=== PATIENT | female | born 1985 | race Caucasian/White ===

== ENCOUNTER 2016-09-09 17:12 | Emergency (ER) | payer SELFPAY ==
--- NOTE | 2016-09-09 18:36 | ED.PDOC ---
History of Present Illness - General Chief Complaint: General Stated Complaint: Feels hot, but denies fever Time Seen by Provider: 09/09/16 18:17 Source: patient Exam Limitations: no limitations - History of Present Illness Initial Comments: Patient presents with a complaint of "hot flashes" this past week. She says she feels hot in her face with occasional mild headache. She felt "light-headed" yesterday after standing. + subjective fever. No nasal exudates nor congestion. No ST. Denies coughing or sneezing. No sick contacts. No other complaints. Timing/Duration: 1 week Severity: mild Improving Factors: nothing Worsening Factors: nothing Associated Symptoms: denies symptoms Allergies/Adverse Reactions: Allergies NO KNOWN ALLERGY Allergy (Verified 10/24/12 11:15) Review of Systems - Review of Systems Constitutional: States: no symptoms reported EENTM: States: no symptoms reported Respiratory: States: no symptoms reported Cardiology: States: no symptoms reported Gastrointestinal/Abdominal: States: no symptoms reported Genitourinary: States: no symptoms reported Musculoskeletal: States: no symptoms reported Skin: States: no symptoms reported Neurological: States: no symptoms reported Endocrine: States: no symptoms reported Hematologic/Lymphatic: States: no symptoms reported Past Medical History (General) - Patient Medical History Hx Seizures: No Hx Stroke: No Hx Asthma: No Hx of COPD: No Hx Cardiac Disorders: No Hx Congestive Heart Failure: No Hx Pacemaker: No Hx Hypertension: No Hx Diabetes: No Hx Cancer: No Hx Hepatitis C: No Hx MRSA: No - Vaccination History Hx Tetanus, Diphtheria Vaccination: No Hx Influenza Vaccination: No Hx Pneumococcal Vaccination: No Immunizations Up to Date: Yes - Social History Hx Tobacco Use: No Hx Chewing Tobacco Use: No Hx Alcohol Use: Yes - Occas Hx Substance Use: No Hx Substance Use Treatment: No Hx Depression: No Feels Threatened In Home Enviroment: No Feels Threatened In a Relationship: No Hx Physical Abuse: No Hx Emotional Abuse: No Hx Suspected Abuse: No - Activities of Daily Living Hospice Agency (if applicable):: None - Female History Patient is a Female of Child Bearing Age (10 -59 yrs old): Yes Hx Last Menstrual Period: 01/08/14 Patient : No Family Medical History - Family History Father Family History: Unknown Living Status: Age at (years of age): 57 Hx Family Cancer: Yes Physical Exam - Physical Exam General Appearance: Alert Eye Exam: bilateral normal Ears, Nose, Throat: normal ENT inspection Neck: non-tender, full range of motion, supple Respiratory: lungs clear Cardiovascular/Chest: normal peripheral pulses, regular rate, rhythm, no edema Gastrointestinal/Abdominal: normal bowel sounds, non tender, soft Rectal Exam: normal exam Back Exam: normal inspection, no CVA tenderness Extremity: normal range of motion, non-tender, normal inspection 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 Patient referred to outpatient physician for further workup of hot flashes. Laboratory Tests 09/09/16 09/09/16 18:40 19:45 WBC 6.8 RBC 4.45 Hgb 13.5 Hct 40.4 MCV 90.7 MCH 30.3 MCHC 33.4 RDW 12.8 Plt Count 217 MPV 9.4 Absolute Neuts (auto) 3.90 Absolute Lymphs (auto) 2.20 Absolute Monos (auto) 0.60 Absolute Eos (auto) 0.10 Absolute Basos (auto) 0.00 Neutrophils % 57.1 Lymphocytes % 32.0 Monocytes % 9.4 H Eosinophils % 1.1 Basophils % 0.4 Sodium 138 Potassium 4.0 Chloride 106 Carbon Dioxide 27 Anion Gap 9.0 L BUN 10 Creatinine 0.70 BUN/Creatinine Ratio 14.3 Random Glucose 85 Serum Osmolality 274.0 L Calcium 9.1 Total Bilirubin 0.5 AST 14 ALT 11 Alkaline Phosphatase 40 L Serum Total Protein 8.1 Albumin 4.3 Globulin 3.8 H Albumin/Globulin Ratio 1.1 Serum HCG, Qual Negative Urine Color Yellow Urine Appearance Cloudy Urine pH 6.5 Ur Specific [place] 1.025 Urine Protein Negative Urine Glucose (UA) Negative Urine Ketones Negative Urine Blood Moderate H Urine Nitrite Negative Urine Bilirubin Negative Urine Urobilinogen 2.0 H Ur Leukocyte Esterase Negative Urine RBC 0-1 Urine WBC 0 Ur Epithelial Cells 10-20 Urine Bacteria 0 Departure - Departure Clinical Impression: The IMO content you are accessing is 14 months old. To get updated IMO content , please contact your IT Dept/Help Desk requesting the latest release. IT Dept/ Help Desk- Please refer to our FAQ page ([email or web address] or contact [employer] Customer Support at [email or web address] Disposition: Discharge to Home or Self Care Condition: Good Departure Forms: ED Discharge - Pt. Copy, Patient Portal Self Enrollment Diet: resume usual diet Activity: increase activity as tolerated Additional Instructions: Follow up with primary care physician for further workup of your hot flashes.
[2016-09-09 20:41] VITALS: BP 100/60; TEMP 97.8; O2SAT 98
== END 2016-09-09 20:40 | disposition home or self-care (01) ==
LOC: ER 17:12
DX: R23.2 Flushing (principal)

== ENCOUNTER 2016-09-21 08:25 | Emergency (ER) | payer SELFPAY ==
[2016-09-21] MEDS ORDERED: KETOROLAC TROMETHAMINE INJ 30 MG/ML VIAL IV ONE (08:53)
--- NOTE | 2016-09-21 10:14 | ED.PDOC ---
History of Present Illness - General Chief Complaint: General Stated Complaint: Right flank pain Time Seen by Provider: 09/21/16 08:42 Source: patient, RN notes reviewed - History of Present Illness Initial Comments: Patient is a 31 y/o female who has had right flank pain for the past 4 days. She was previously seen in the ED for hot flashes which she says she has when she has a UTI. Since that time, she has had dysuria which has resolved, however she now has sever right flank pain which is sharp. No fever/chills. Timing/Duration: other - 4 days Severity: severe Improving Factors: nothing Worsening Factors: movement Associated Symptoms: denies symptoms Allergies/Adverse Reactions: Allergies NO KNOWN ALLERGY Allergy (Verified 10/24/12 11:15) Home Medications: Ambulatory Orders Ciprofloxacin [Cipro] 500 mg PO BID #14 tab 09/21/16 Review of Systems - Review of Systems Constitutional: States: no symptoms reported EENTM: States: no symptoms reported Respiratory: States: no symptoms reported Cardiology: States: no symptoms reported Gastrointestinal/Abdominal: States: no symptoms reported Genitourinary: States: dysuria, pain Musculoskeletal: States: back pain Skin: States: no symptoms reported Neurological: States: no symptoms reported Endocrine: States: other - hot flashes Hematologic/Lymphatic: States: no symptoms reported All other Systems: Reviewed and Negative Past Medical History (General) - Patient Medical History Hx Seizures: No Hx Stroke: No Hx Asthma: No Hx of COPD: No Hx Cardiac Disorders: No Hx Congestive Heart Failure: No Hx Pacemaker: No Hx Hypertension: No Hx Diabetes: No Hx Cancer: No Hx Hepatitis C: No Hx MRSA: No - Vaccination History Hx Tetanus, Diphtheria Vaccination: No Hx Influenza Vaccination: No Hx Pneumococcal Vaccination: No - Social History Hx Tobacco Use: No Hx Chewing Tobacco Use: No Hx Alcohol Use: Yes - Occas Hx Substance Use: No Hx Substance Use Treatment: No Hx Depression: No Hx Physical Abuse: No Hx Emotional Abuse: No Hx Suspected Abuse: No - Female History Hx Last Menstrual Period: 01/08/14 Patient : No Family Medical History - Family History Father Family History: Unknown Living Status: Age at (years of age): 59 Hx Family Cancer: Yes Physical Exam - Physical Exam General Appearance: Obvious distress Ears, Nose, Throat: hearing grossly normal Neck: full range of motion Respiratory: lungs clear, normal breath sounds, no respiratory distress, no accessory muscle use Cardiovascular/Chest: regular rate, rhythm, no edema, no gallop, no murmur Gastrointestinal/Abdominal: normal bowel sounds, soft, no organomegaly, tenderness - right flank Back Exam: CVA tenderness (R) Extremity: normal range of motion, non-tender, normal inspection, no pedal edema Skin Exam: normal color, warm/dry Progress - Results/Orders Results/Orders: 09/21/16 09:12 URINE CULTURE W/COLONY COUNT Stat Laboratory Results Serum HCG, Qual Negative 09/21/16 09:00 Urine Color Yellow (Yellow) 09/21/16 09:12 Urine Appearance Sl cloudy (Clear) 09/21/16 09:12 Urine pH 7.5 (4.5-7.8) 09/21/16 09:12 Ur Specific [place] 1.020 (1.005-1.030) 09/21/16 09:12 Urine Protein 30 mg/dL 09/21/16 09:12 Urine Glucose (UA) Negative mg/dL (Negative) 09/21/16 09:12 Urine Ketones Negative mg/dL (NEGATIVE) 09/21/16 09:12 Urine Blood Trace-lysed (Negative) H 09/21/16 09:12 Urine Nitrite Positive H 09/21/16 09:12 Urine Bilirubin Negative (NEGATIVE) 09/21/16 09:12 Urine Urobilinogen 0.2 mg/dL (0.2-1.0) 09/21/16 09:12 Ur Leukocyte Esterase Small (Negative) H 09/21/16 09:12 Urine RBC 5-10 /hpf H 09/21/16 09:12 Urine WBC 30-40 /hpf H 09/21/16 09:12 Ur Epithelial Cells 1-3 /hpf 09/21/16 09:12 Urine Bacteria 3+ H 09/21/16 09:12 Departure - Departure Clinical Impression: Kidney infection Time of Disposition: 10:18 Disposition: Discharge to Home or Self Care Condition: Fair Departure Forms: ED Discharge - Pt. Copy, Patient Portal Self Enrollment Instructions: Kidney Infection, DI for Kidney Infection Diet: resume usual diet Prescriptions: Ciprofloxacin [Cipro] 500 mg PO BID #14 tab Home Medications: Ambulatory Orders Ciprofloxacin [Cipro] 500 mg PO BID #14 tab 09/21/16 Additional Instructions: FOllow up if symptoms persist or worsen.
[2016-09-21 11:59] VITALS: TEMP 99.8
[2016-09-21 12:07] VITALS: BP 105/67; O2SAT 98
== END 2016-09-21 10:45 | disposition home or self-care (01) ==
LOC: ER 08:25
DX: N15.9 Renal tubulo-interstitial disease, unspecified (principal)

== ENCOUNTER → 2018-05-31 | Outpatient (CLI) | payer MEDICAID | LOC: YCFC.O 11:34 | DX: Z01.411 Encounter for gynecological examination (general) (routine) with abnormal findings (principal) ==

== ENCOUNTER → 2018-06-03 | Outpatient (CLI) | payer MEDICAID ==
--- NOTE | 2018-06-04 07:31 | US ---
EXAM DESCRIPTION: Pelvis Transvaginal: Ultrasound. CLINICAL HISTORY: CYST ON OVARIES. 7, para 4, SAB 2, TAB 1. LMP 05/19/2018. COMPARISON: Pelvic ultrasound 01/17/2014. TECHNIQUE: Endovaginal scanning; Causey-scale and Doppler modes. FINDINGS: Uterus 10.0 x 6.1 x 3.9 cm. Volume 123.7 mL. Endometrial thickness is 8.1 mm. Minimal fluid. Myometrium appears homogeneous. Uterus not retroflexed. Cervix multiple cysts, largest measures 5.8 mm.. Cul-de-sac contains no fluid. Right ovary 4.4 x 3.7 x 3.2 cm. Normal waveform and color Doppler vascularity. Complex cyst measuring 3.2 x 3.0 x 2.7, not vascular. No adnexal mass or free fluid. Left ovary 2.0 x 1.3 x 1.1 cm. Normal waveform and color Doppler vascularity. No follicles or cysts. No adnexal mass or free fluid. IMPRESSION: 1. Complex right ovarian cyst with maximum diameter 3.2 cm. If cyst <= 7cm, recommend pelvic US follow-up in 6-12 weeks; if unchanged, continue f/u with US OR MRI w/IV contrast - if f/u studies do not confirm endometrioma or dermoid, consider surgical evaluation. If cyst > 7cm, recommend MRI w/IV contrast or surgical evaluation. Reference: Radiology 2010 Apr;256(3):943-54. 2. No endometrial thickening but minimal fluid. Nabothian cysts in the cervix. Uterus upper normal limits in volume. Normal position. Electronically signed by: Minor Dougherty MD 06/04/2018 7:29 AM CDT
== END ==
LOC: US 11:33
DX: R10.2 Pelvic and perineal pain (principal); N83.201 Unspecified ovarian cyst, right side

== ENCOUNTER 2018-09-08 17:44 | Emergency (ER) | payer MEDICAID ==
--- NOTE | 2018-09-08 18:29 | RAD ---
EXAM DESCRIPTION: Chest,2 Views CLINICAL HISTORY:33 years Female, cough and fever Comparison: June 24, 2016 FINDINGS: No focal lung consolidation. No pleural effusion. No pneumothorax. Cardiac and mediastinal silhouette is unremarkable. No acute osseous abnormality. Soft tissues are unremarkable. IMPRESSION: No acute findings. No focal lung consolidation. Electronically signed by: Antonio Fuentes MD 09/08/2018 6:27 PM [facility]
[2018-09-08] MEDS ORDERED: POTASSIUM CHLORIDE 20 MEQ TAB PO ONE (19:18)
[2018-09-08] MEDS ORDERED: ONDANSETRON INJ 4 MG/2 ML VIAL ONE (19:24)
[2018-09-08] MEDS ORDERED: ONDANSETRON INJ 4 MG/2 ML VIAL IV ONE (19:24)
--- NOTE | 2018-09-08 20:08 | ED.PDOC ---
History of Present Illness - General Chief Complaint: General Time Seen by Provider: 09/08/18 17:57 Source: patient Exam Limitations: no limitations - History of Present Illness Initial Comments: Patient presents with a fever and cough for three days. The cough is non- productive. She denies sore throat. She says that she had a fever earlier this month as well and thinks that it only stopped for one day. Today, she developed N/V/D. Denies abdominal pain. No rhinorrhea nor congestion. Denies dyspnea. No other complaints. Timing/Duration: intermittent Severity: moderate Improving Factors: nothing Worsening Factors: nothing Associated Symptoms: other - as in HPI Allergies/Adverse Reactions: Allergies NO KNOWN ALLERGY Allergy (Verified 10/24/12 11:15) Home Medications: Ambulatory Orders Ciprofloxacin [Cipro] 500 mg PO BID #14 tab 09/21/16 Review of Systems - Review of Systems Constitutional: States: see HPI, fever EENTM: States: see HPI Respiratory: States: see HPI Cardiology: States: no symptoms reported Gastrointestinal/Abdominal: States: see HPI Genitourinary: States: no symptoms reported Musculoskeletal: States: no symptoms reported Skin: States: no symptoms reported Neurological: States: no symptoms reported Endocrine: States: no symptoms reported Hematologic/Lymphatic: States: no symptoms reported Past Medical History (General) - Patient Medical History Hx Seizures: No Hx Stroke: No Hx Asthma: No Hx of COPD: No Hx Cardiac Disorders: No Hx Congestive Heart Failure: No Hx Pacemaker: No Hx Hypertension: No Hx Diabetes: No Hx Cancer: No Hx Hepatitis C: No Hx MRSA: No Surgical History: other - Vaccination History Hx Tetanus, Diphtheria Vaccination: No Hx Influenza Vaccination: No Hx Pneumococcal Vaccination: No - Social History Hx Tobacco Use: No Hx Chewing Tobacco Use: No Hx Alcohol Use: Yes - Rare Hx Substance Use: No Hx Substance Use Treatment: No Hx Depression: No Hx Physical Abuse: No Hx Emotional Abuse: No Hx Suspected Abuse: No - Female History Patient is a Female of Child Bearing Age (10 -59 yrs old): Yes Hx Last Menstrual Period: 01/08/14 Patient : No Family Medical History - Family History Father Family History: Unknown Living Status: Age at (years of age): 59 Hx Family Cancer: Yes Physical Exam - Physical Exam General Appearance: Alert Ears, Nose, Throat: normal ENT inspection Neck: non-tender, full range of motion, supple Respiratory: lungs clear, normal breath sounds Cardiovascular/Chest: normal peripheral pulses, regular rate, rhythm, no edema Gastrointestinal/Abdominal: normal bowel sounds, non tender, soft Back Exam: normal inspection, no CVA tenderness Neurologic: no motor/sensory deficits, alert, normal mood/affect, oriented x 3 Skin Exam: normal color Lymphatic: no adenopathy Progress - Progress Progress: 09/08/18 22:38 Laboratory Tests 09/08/18 09/08/18 09/08/18 18:06 18:16 18:16 WBC 5.4 RBC 4.22 Hgb 12.9 Hct 38.1 MCV 90.4 MCH 30.7 MCHC 33.9 RDW 12.3 Plt Count 157 MPV 10.1 Absolute Neuts (auto) 3.40 Absolute Lymphs (auto) 0.90 L Absolute Monos (auto) 1.20 H Absolute Eos (auto) 0.00 Absolute Basos (auto) 0.00 Neutrophils % 61.8 Lymphocytes % 16.6 L Monocytes % 21.2 H Eosinophils % 0.1 L Basophils % 0.3 Sodium 135 Potassium 3.3 L Chloride 105 Carbon Dioxide 21 Anion Gap 12.3 BUN 8 Creatinine 0.66 BUN/Creatinine Ratio 12.1 Random Glucose 96 Serum Osmolality 268.3 L Calcium 8.6 Urine Color Urine Appearance Urine pH Ur Specific [place] Urine Protein Urine Glucose (UA) Urine Ketones Urine Blood Urine Nitrite Urine Bilirubin Urine Urobilinogen Ur Leukocyte Esterase Urine RBC Urine WBC Ur Epithelial Cells Urine Bacteria Urine HCG, Qual Group A Strep Rapid Negative 09/08/18 09/08/18 20:10 20:57 WBC RBC Hgb Hct MCV MCH MCHC RDW Plt Count MPV Absolute Neuts (auto) Absolute Lymphs (auto) Absolute Monos (auto) Absolute Eos (auto) Absolute Basos (auto) Neutrophils % Lymphocytes % Monocytes % Eosinophils % Basophils % Sodium Potassium Chloride Carbon Dioxide Anion Gap BUN Creatinine BUN/Creatinine Ratio Random Glucose Serum Osmolality Calcium Urine Color Yellow Urine Appearance Clear Urine pH 7.0 Ur Specific [place] 1.020 Urine Protein Trace Urine Glucose (UA) Negative Urine Ketones >=160 Urine Blood Negative Urine Nitrite Negative Urine Bilirubin Small H Urine Urobilinogen 2.0 H Ur Leukocyte Esterase Negative Urine RBC 0-1 Urine WBC 3-5 H Ur Epithelial Cells >50 Urine Bacteria 0 Urine HCG, Qual Negative Group A Strep Rapid Patient had vomiting x one in the E.D. She was given IV fluids but her blood pressure trended down to 88 systolic and her fever continued to rise. The blood pressure drop did not seem to come from just a loss of fluids because of her limited vomiting and the fact that she was taking in oral fluids while here. Her influenza A was positive. CXR unremarkable. It is possible that this could be viral sepsis due to influenza. wbc was wnl. Blood cultures were draw, Levaquin 750 mg IV x one given, Tamiflu 75 mg po x one given ,and fluids continued. I was concerned about the small amount of protein in the urine and whether that represented end-organ damage or was just from the epithelia cells in the urine. CMP and lactic acid was ordered. 09/08/18 23:04 Lactic acid was 1.0. No signs of end-organ damage on CMP. Patient to be transferred to [facility] since influenza cannot be ruled out at this time as a cause for the hypotension and because of the high mortality with viral sepsis. Patient was in agreement with this plan. Departure - Departure Clinical Impression: Influenza A, Hypotension Disposition: Transfer to Hospital Condition: Fair Departure Forms: ED Discharge - Pt. Copy, Patient Portal Self Enrollment Diet: other - as per hospitalist Activity: increase activity as tolerated Referrals: Maxine Estevez FNP [Primary Care Provider] - 1-2 Weeks Home Medications: Ambulatory Orders Ciprofloxacin [Cipro] 500 mg PO BID #14 tab 09/21/16
[2018-09-08] MEDS ORDERED: BENZONATATE PERLES 100 MG CAP PO ONE (20:21)
[2018-09-08] MEDS ORDERED: ACETAMINOPHEN 325 MG TAB ONE (20:23)
[2018-09-08] MEDS ORDERED: ACETAMINOPHEN 325 MG TAB PO ONE (20:27)
[2018-09-08] MEDS ORDERED: SODIUM CHLORIDE 0.9% 1000ML 1,000 ML IVS ONE (20:36)
[2018-09-08] MEDS ORDERED: levoFLOXacin 750MG IV 750 MG in PREMIX BAG 1 BAG IVPB ONE (22:17)
[2018-09-08] MEDS ORDERED: OSELTAMIVIR 75 MG CAP PO ONE (22:18)
[2018-09-08 23:06] VITALS: BP 118/71; O2SAT 98
[2018-09-09 00:04] VITALS: TEMP 99.7
== END 2018-09-08 23:45 | disposition short-term general hospital (02) ==
LOC: ER 17:44
DX: J10.1 Influenza due to other identified influenza virus with other respiratory manifestations (principal); I95.9 Hypotension, unspecified; R11.2 Nausea with vomiting, unspecified; R19.7 Diarrhea, unspecified
CPT/HCPCS: 36415; 71046; 80048; 80053; 81001; 81025; 83605; 85025; 87040; 87070; 87502; 87880; J1956; J2405; J7030

== ENCOUNTER 2019-05-14 18:08 | Emergency (ER) | payer MEDICAID ==
[2019-05-14 18:19] VITALS: BP 106/82; TEMP 99.5; O2SAT 99
--- NOTE | 2019-05-14 18:27 | ED.PDOC ---
History of Present Illness - General Chief Complaint: Respiratory Problem Time Seen by Provider: 05/14/19 18:24 - History of Present Illness Comments: c/o cough with fever and some sob since 2 days : now getting worse : no wheezing Allergies/Adverse Reactions: Allergies NO KNOWN ALLERGY Allergy (Verified 10/24/12 11:15) Review of Systems - Review of Systems Constitutional: States: fever EENTM: States: no symptoms reported Respiratory: States: see HPI Cardiology: States: no symptoms reported Gastrointestinal/Abdominal: States: no symptoms reported Genitourinary: States: no symptoms reported Musculoskeletal: States: no symptoms reported Skin: States: no symptoms reported Neurological: States: no symptoms reported Endocrine: States: no symptoms reported Hematologic/Lymphatic: States: no symptoms reported All other Systems: Reviewed and Negative Past Medical History (General) - Patient Medical History Hx Seizures: No Hx Stroke: No Hx Asthma: No Hx of COPD: No Hx Cardiac Disorders: No Hx Congestive Heart Failure: No Hx Pacemaker: No Hx Hypertension: No Hx Diabetes: No Hx Cancer: No Hx Hepatitis C: No Hx MRSA: No Surgical History: other - Vaccination History Hx Tetanus, Diphtheria Vaccination: No Hx Influenza Vaccination: No Hx Pneumococcal Vaccination: No - Social History Hx Tobacco Use: No Hx Chewing Tobacco Use: No Hx Alcohol Use: Yes - Rare Hx Substance Use: No Hx Substance Use Treatment: No Hx Depression: No Hx Physical Abuse: No Hx Emotional Abuse: No Hx Suspected Abuse: No - Female History Hx Last Menstrual Period: 01/08/14 Patient : No Family Medical History - Family History Father Family History: Unknown Living Status: Age at (years of age): 57 Hx Family Cancer: Yes Physical Exam - Physical Exam General Appearance: Alert, Comfortable, Well Developed, Well Groomed, Well Hydrated, Well Nourished ENT Exam: normal ENT inspection Neck: non-tender, full range of motion, supple Respiratory: chest non-tender, lungs clear, normal breath sounds, no respiratory distress, no accessory muscle use Cardiovascular/Chest: normal peripheral pulses, regular rate, rhythm, no edema Gastrointestinal/Abdominal: non tender Extremity: normal range of motion, non-tender, normal inspection, no pedal edema Neurologic: no motor/sensory deficits, alert, normal mood/affect, oriented x 3 Departure - Departure Clinical Impression: Upper respiratory infection Disposition: Discharge to Home or Self Care Departure Forms: ED Discharge - Pt. Copy, Patient Portal Self Enrollment Diet: resume usual diet Activity: increase activity as tolerated, walking as tolerated Referrals: Yesika Zhu NP [Primary Care Provider] - 1-2 Weeks
--- NOTE | 2019-05-14 18:53 | RAD ---
EXAM DESCRIPTION: XR Chest,1 View CLINICAL HISTORY: 34 years Female, sob COMPARISON: 2 view chest dated September 08, 2018. FINDINGS: Heart size and mediastinal and hilar structures appear essentially within normal limits. The lungs appear essentially clear. Minimal linear stranding noted in the left base. Equivocal minimal hyperinflation versus a slightly deeper inspiratory effort on the current examination. There is no evidence of pneumothorax on this upright portable film. Overall, no significant appearing interval change is seen. Regional bony structures appear intact as visualized. IMPRESSION: No radiographic evidence of acute cardiopulmonary disease. Electronically signed by: Lazaro Darden MD 05/14/2019 6:51 PM CDT
== END 2019-05-14 18:45 | disposition home or self-care (01) ==
LOC: ER 18:08
DX: J20.9 Acute bronchitis, unspecified (principal); J06.9 Acute upper respiratory infection, unspecified

== ENCOUNTER 2020-08-04 15:59 | Emergency (ER) | payer OTHER, SELFPAY ==
[2020-08-04] MEDS ORDERED: KETOROLAC TROMETHAMINE INJ 30 MG/ML VIAL IM ONE (16:21)
[2020-08-04] MEDS ORDERED: FLUCONAZOLE 100 MG TAB PO ONE (19:05)
[2020-08-04] MEDS ORDERED: cefTRIAXone SODIUM 1 GM VIAL IM ONE (19:05)
[2020-08-04] MEDS ORDERED: LIDOCAINE 1% 10 ML VIAL INJ ONE (19:11)
--- NOTE | 2020-08-04 19:20 | RAD ---
EXAM: Abdomen Flat Upright CLINICAL INDICATION: 35-year-old female with lower abdominal pain. TECHNIQUE: Single supine view of the abdomen was obtained. COMPARISON: 12/11/2007. FINDINGS: Gas is seen within normal caliber small and large bowel. Few nonspecific air-filled small bowel loops present within the central abdomen. No free air is identified. There are no abnormal calcifications. The osseous structures reveal S-shaped curvature of the thoracolumbar spine. The lung bases are clear. IMPRESSION: Nonspecific abdominal bowel gas pattern. Electronically signed by: Kareen Urias MD 08/04/2020 7:18 PM [facility]
[2020-08-04] MEDS ORDERED: SODIUM CHLORIDE 0.9% 1000ML 1,000 ML IVS ONE (19:30)
--- NOTE | 2020-08-04 20:28 | CT ---
EXAM: CT Abdomen and Pelvis With Intravenous Contrast CLINICAL HISTORY: The patient is 35 years old and is Female; lower abd pain TECHNIQUE: Axial computed tomography images of the abdomen and pelvis with intravenous contrast. Sagittal and coronal reformatted images were created and reviewed. This CT exam was performed using one or more of the following dose reduction techniques: automated exposure control, adjustment of the mA and/or kV according to patient size, and/or use of iterative reconstruction technique. COMPARISON: January 16, 2014 CT abdomen and pelvis with contrast FINDINGS: Lung bases: Unremarkable. No mass. No consolidation. ABDOMEN: Liver: Unremarkable. No mass. Gallbladder and bile ducts: Unremarkable. No calcified stones. No ductal dilation. Pancreas: No findings to suggest acute pancreatitis. No mass visualized. No ductal dilation. Spleen: Unremarkable. No splenomegaly. Adrenals: Unremarkable. No mass. Kidneys and ureters: Unremarkable. No solid mass. No hydronephrosis. Stomach and bowel: No bowel dilatation or obstruction. No bowel wall thickening. PELVIS: Appendix: The visualized appendix is normal. No pericecal inflammation to suggest acute appendicitis. Bladder: Unremarkable. No mass. Reproductive: 1.2 cm right ovarian corpus luteum. Uterus and left ovary are unremarkable. ABDOMEN and PELVIS: Intraperitoneal space: Free fluid in the cul-de-sac, likely physiologic. No free air. Bones/joints: No acute fracture visualized. No dislocation. Soft tissues: Unremarkable. Vasculature: Unremarkable. No abdominal aortic aneurysm. Lymph nodes: No pathologically enlarged lymph nodes. IMPRESSION: 1. No acute obstructive or inflammatory process identified. Normal appendix. 2. 1.2 cm right ovarian corpus luteum. No follow-up imaging recommended. Electronically signed by: Sammi Salamacna MD 08/04/2020 8:26 PM [facility]
[2020-08-04] MEDS ORDERED: DOXYCYCLINE HYCLATE CAP 100 MG CAP PO ONE (20:29)
--- NOTE | 2020-08-04 20:32 | ED.PDOC ---
History of Present Illness - General Chief Complaint: Abdominal Pain Stated Complaint: Lower abd/pelvic region pain Time Seen by Provider: 08/04/20 16:21 Source: patient Exam Limitations: no limitations - History of Present Illness Initial Comments: The patient is a 35-year-old female presented emergency room secondary to lower abdominal right lower quadrant pain. She is having cramping like contractions. No abnormal bleeding. No fever. No nausea or vomiting. No syncope. It is not worse with. It is worse with palpation. Mild increased vaginal discharge. Timing/Duration: unsure, other - Around 3 days but much worse today Severity: severe Improving Factors: immobilization Worsening Factors: movement Associated Symptoms: denies symptoms Allergies/Adverse Reactions: Allergies NO KNOWN ALLERGY Allergy (Verified 08/04/20 16:18) Home Medications: Ambulatory Orders Doxycycline Hyclate 100 mg PO BID #20 cap 08/04/20 Review of Systems - Review of Systems Constitutional: States: no symptoms reported EENTM: States: no symptoms reported Respiratory: States: no symptoms reported Cardiology: States: no symptoms reported Gastrointestinal/Abdominal: States: abdominal pain, nausea Genitourinary: States: discharge, pain Musculoskeletal: States: no symptoms reported Skin: States: no symptoms reported Neurological: States: no symptoms reported Endocrine: States: no symptoms reported All other Systems: No Change from Baseline Past Medical History (General) - Patient Medical History Hx Seizures: No Hx Stroke: No Hx Asthma: No Hx of COPD: No Hx Cardiac Disorders: No Hx Congestive Heart Failure: No Hx Pacemaker: No Hx Hypertension: No Hx Diabetes: No Hx Cancer: No Hx Hepatitis C: No Hx MRSA: No Surgical History: other - Vaccination History Hx Tetanus, Diphtheria Vaccination: No Hx Influenza Vaccination: No Hx Pneumococcal Vaccination: No - Social History Hx Tobacco Use: Yes Hx Chewing Tobacco Use: No Hx Alcohol Use: No Hx Substance Use: No Hx Substance Use Treatment: No Hx Depression: No Hx Physical Abuse: No Hx Emotional Abuse: No Hx Suspected Abuse: No - Female History Patient is a Female of Child Bearing Age (10 -59 yrs old): Yes Hx Last Menstrual Period: 01/08/14 Patient : No Family Medical History - Family History Father Family History: Unknown Living Status: Age at (years of age): 57 Hx Family Cancer: Yes Physical Exam - Physical Exam General Appearance: Alert, No apparent distress, Other - Uncomfortable Eye Exam: bilateral normal Ears, Nose, Throat: hearing grossly normal, normal ENT inspection Neck: full range of motion, supple Respiratory: lungs clear, normal breath sounds, no respiratory distress, no accessory muscle use Cardiovascular/Chest: normal peripheral pulses, regular rate, rhythm, no edema Peripheral Pulses: radial,right: 2+, radial,left: 2+ Gastrointestinal/Abdominal: soft, other - Suprapubic to right lower quadrant discomfort to palpation. Rectal Exam: deferred, other - Pelvic exam shows cervical motion tenderness as well as fundal tenderness to palpation and right adnexal tenderness to palpation. The patient does have additionally some increased vaginal discharge. Back Exam: no CVA tenderness, no vertebral tenderness Extremity: normal range of motion, non-tender, normal inspection, no pedal edema, normal capillary refill Neurologic: alert, normal mood/affect, oriented x 3 Skin Exam: normal color Comments: Vital Signs - 24 hr 08/04/20 08/04/20 08/04/20 16:08 16:14 17:00 Temperature 97.8 F Pulse Rate [ 82 82 65 Pulse ox] Respiratory 18 18 20 Rate Blood Pressure 108/82 102/73 [L arm] O2 Sat by Pulse 100 100 Oximetry 08/04/20 18:00 Temperature 98.1 F Pulse Rate [ 66 Pulse ox] Respiratory 18 Rate Blood Pressure 96/72 [L arm] O2 Sat by Pulse 98 Oximetry Progress - Progress Progress: 08/04/20 20:33 The patient is a 35-year-old female presented emergency room secondary to pelvic pain. Based upon exam the patient does appear to have pelvic inflammatory disease. Gonorrhea and Chlamydia tests are a send out. The patient is being treated empirically with a dose of Rocephin here and 10 days of oral doxycycline. She did also receive a dose of Diflucan here. The patient can take Aleve 2 tablets twice daily for the next few days. She needs to keep her self well-hydrated. No evidence of any abscess formation on CT scan. No evidence of any appendicitis on CT scan. Lab work is otherwise reassuring at this time. ER warnings are given for any obvious worsening. She does need to follow-up with a exhibit carpenter in the near future. [email or web address] [id number] - Results/Orders Results/Orders: 08/04/20 19:25 GC CHLAMYDIA RNA,TMA Stat CT scan of the abdomen pelvis shows no obvious acute pathology. She does have a 1.2 cm corpus luteum cyst. No obvious visible abnormality of the uterus, fallopian tubes or ovaries otherwise. No evidence of appendicitis. Laboratory Results - last 24 hr 08/04/20 08/04/20 08/04/20 16:21 16:32 16:32 WBC 7.6 RBC 4.01 L Hgb 12.6 Hct 36.1 MCV 89.9 MCH 31.4 H MCHC 34.9 RDW 12.9 Plt Count 239 MPV 9.0 Absolute Neuts (auto) 4.30 Absolute Lymphs (auto) 2.50 Absolute Monos (auto) 0.70 Absolute Eos (auto) 0.00 Absolute Basos (auto) 0.00 Neutrophils % 57.1 Lymphocytes % 32.8 Monocytes % 9.0 Eosinophils % 0.6 L Basophils % 0.5 Sodium 136 Potassium 3.9 Chloride 100 L Carbon Dioxide 24 Anion Gap 15.9 BUN 11 Creatinine 0.70 BUN/Creatinine Ratio 15.7 Random Glucose 93 Serum Osmolality 271.1 L Calcium 8.9 Total Bilirubin 0.5 AST 14 ALT 14 Alkaline Phosphatase 34 L Serum Total Protein 7.9 Albumin 4.4 Globulin 3.5 Albumin/Globulin Ratio 1.3 Amylase 60 Lipase 36 Urine Color Urine Appearance Urine pH Ur Specific [place] Urine Protein Urine Glucose (UA) Urine Ketones Urine Blood Urine Nitrite Urine Bilirubin Urine Urobilinogen Ur Leukocyte Esterase Urine RBC Urine WBC Ur Epithelial Cells Urine Bacteria Urine HCG, Qual Negative 08/04/20 17:12 WBC RBC Hgb Hct MCV MCH MCHC RDW Plt Count MPV Absolute Neuts (auto) Absolute Lymphs (auto) Absolute Monos (auto) Absolute Eos (auto) Absolute Basos (auto) Neutrophils % Lymphocytes % Monocytes % Eosinophils % Basophils % Sodium Potassium Chloride Carbon Dioxide Anion Gap BUN Creatinine BUN/Creatinine Ratio Random Glucose Serum Osmolality Calcium Total Bilirubin AST ALT Alkaline Phosphatase Serum Total Protein Albumin Globulin Albumin/Globulin Ratio Amylase Lipase Urine Color Yellow Urine Appearance Sl cloudy Urine pH 5.5 Ur Specific [place] >= 1.030 Urine Protein Trace Urine Glucose (UA) Negative Urine Ketones Trace Urine Blood Trace-intact H Urine Nitrite Negative Urine Bilirubin Negative Urine Urobilinogen 0.2 Ur Leukocyte Esterase Negative Urine RBC 1-3 Urine WBC 0-1 Ur Epithelial Cells 20-30 Urine Bacteria 2+ H Urine HCG, Qual Wet prep shows a fair number of white blood cells. No trichomonas. No obvious yeast. Departure - Departure Clinical Impression: Pelvic inflammatory disease (PID) Disposition: Discharge to Home or Self Care Condition: Fair Departure Forms: ED Discharge - Pt. Copy, Patient Portal Self Enrollment Instructions: DI for Abdominal Pain-Adult, Pelvic Inflammatory Disease (DC) Diet: regular diet Activity: increase activity as tolerated Prescriptions: Doxycycline Hyclate 100 mg PO BID #20 cap Home Medications: Ambulatory Orders Doxycycline Hyclate 100 mg PO BID #20 cap 08/04/20 Additional Instructions: The patient is a 35-year-old female presented emergency room secondary to pelvic pain. Based upon exam the patient does appear to have pelvic inflammatory disease. Gonorrhea and Chlamydia tests are a send out. The patient is being treated empirically with a dose of Rocephin here and 10 days of oral doxycycline. She did also receive a dose of Diflucan here. The patient can take Aleve 2 tablets twice daily for the next few days. She needs to keep her self well-hydrated. No evidence of any abscess formation on CT scan. No evidence of any appendicitis on CT scan. Ultrasound was not available for the patient tonight. Lab work is otherwise reassuring at this time. ER warnings are given for any obvious worsening. She does need to follow-up with a exhibit carpenter in the near future.
[2020-08-04 21:06] VITALS: O2SAT 100
[2020-08-04 21:09] VITALS: BP 103/71; TEMP 97.5
== END 2020-08-04 20:45 | disposition home or self-care (01) ==
LOC: ER 15:59
DX: N73.9 Female pelvic inflammatory disease, unspecified (principal); N83.11 Corpus luteum cyst of right ovary; Z87.891 Personal history of nicotine dependence
CPT/HCPCS: 36415; 74019; 74177; 80053; 81001; 81025; 82150; 83690; 85025; 87210; 87491; 87591; J0696; J1885; J7030